=== PATIENT | male | born 1955 | race Caucasian/White ===

== ENCOUNTER 2018-10-09 14:22 | Inpatient (IN) | payer OTHER ==
[2018-10-09 15:27] VITALS: BMI 24.5
--- NOTE | 2018-10-09 17:04 | HP ---
CIWA Score Nausea/Vomitin Muscle Tremors: 6 Anxiety: 4-Mod. Anxious/Guarded Agitation: 1-Slight > Activity Paroxysmal Sweats: 2 Orientation: 0-Oriented Tacttile Disturbances: 2-Mild Itch/Numbness/Burn Auditory Disturbances: 0-None Visual Disturbances: 3-Moderate Sensitivity Headache: 2-Mild CIWA-Ar Total Score: 23 - Admission Criteria OASAS Guidelines: Admission for Medically Managed Detox: Requires at least one of the followin. CIWA greater than 12 2. Seizures within the past 24 hours 3. Delirium tremens within the past 24 hours 4. Hallucinations within the past 24 hours 5. Acute intervention needed for co occurring medical disorder 6. Acute intervention needed for co occurring psychiatric disorder 7. Severe withdrawal that cannot be handled at a lower level of care (continued vomiting, continued diarrhea, abnormal vital signs) requiring intravenous medication and/or fluids 8. Admission ROS S - [facility] Chief Complaint: " I need a drink , I don't ant to be here but I have to my worker said so " Allergies/Adverse Reactions: Allergies Allergy/AdvReac Type Severity Reaction Status Date / Time amlodipine Allergy Intermediate Swelling Verified 10/09/18 15:15 History of Present Illness: pt here requesting detox from etoh use , reports 1 large bottle liquor / day since January 2018 after the of his brother , first age of use 15 , intermittent use , reports currently has to drink in order to stop tremors " I have a bottle under my pillow " , denies seizures , +tremors , denies blackouts , latest use this morning before coming to this facility at the prompting of his senior case manager at the transitional housing residence where he lives . Pt reports falls while intoxicated , uses cane and a walker , reports LE neuropathy . Reports recent fall w/ injury to right arm , went to urgent care per pt no frx PMHX : htn , liver cirrhosis , renal failure several months ago 2/2 dehydration , pancreatitis latest 1 mo ago [place] , sent to rehab afterwards [facility] in [place] , d/c 2 mo ago , relapse after d/c , asthma PSHX : deviated septum PSych : depression , bipolar d/o tobacco : denies Exam Limitations: Clinical Condition, Intoxication - Ebola screening Have you traveled outside of the country in the last 21 days: No (N) Have you had contact with anyone from an Ebola affected area: No Do you have a fever: No - Review of Systems Constitutional: Loss of Appetite EENT: reports: Blurred Vision Respiratory: reports: Cough (reports gagging sensation w/ nausea) Cardiac: reports: No Symptoms Reported GI: reports: See HPI : reports: No Symptoms Reported Musculoskeletal: reports: See HPI Integumentary: reports: See HPI, Lumps (right forearm) Neuro: reports: Headache, Tremors Endocrine: reports: No Symptoms Reported Psychiatric: reports: Orientated x3, Agitated, Anxious Patient History - Smoking Cessation Smoking history: Never smoked - Substances abused Alcohol Substance route: Oral Frequency: Daily Amount used: vodka- half gallon Age of first use: 14 Date of last use: 10/09/18 Family Disease History - Family Disease History Family Disease History: CA: Father (d. lung ca 1970's), Brother (d. pancreatic CA , 2 w/ prostate CA ), Other: Father, Mother (d. 2008 Alzheimer's ), Brother , Son (1, A & W ) Other Family History: niece - d. 2018 @ age 50 w/ ovarian CA Admission Physical Exam S - Vital Signs Vital Signs: Vital Signs - 24 hr 10/09/18 15:11 Temperature 98.4 F Pulse Rate 95 H Respiratory 18 Rate Blood Pressure 138/89 - Physical General Appearance: Yes: Disheveled, Severe Distress, Alcohol on Breath, Intoxicated, Anxious HEENTM: Yes: EOMI, Normocephalic, Normal Voice, Hearing Decreased, Other (poor dentition , missing teeth) Respiratory: Yes: Lungs Clear, Normal Breath Sounds, No Respiratory Distress, No Accessory Muscle Use, Other (left side of chest wall tender, reports rib frx 2/2 fall 2 months ago) Neck: Yes: No masses,lesions,Nodules, Trachea in good position Cardiology: Yes: Regular Rhythm, Regular Rate, S1, S2, Tachycardia Abdominal: Yes: Non Tender, Soft Back: Yes: Normal Inspection Musculoskeletal: Yes: Joint Stiffness, Joint swelling (right forearm ulna extensor surface lower 1/3 w/ erythema, edema, induration and tenderness to palpation - states XR already done , no frx), Other (unsteady gait) Extremities: Yes: Non-Tender, Tremors Neurological: Yes: Fully Oriented, Alert, Motor Strength 5/5, Depressed Affect Integumentary: Yes: Warm, Erythema - Diagnostic (1) Alcohol intoxication Current Visit: Yes Status: Acute Qualifiers: Complication of substance-induced condition: uncomplicated Qualified Code(s ): F10.920 - Alcohol use, unspecified with intoxication, uncomplicated (2) Alcohol dependence Current Visit: Yes Status: Acute Qualifiers: Substance use status: in withdrawal Breathalyzer - Breathalyzer Breathalyzer: 0.150 Urine Drug Screen - Test Device Lot number: [id number] Expiration date: 01/11/20 - Control Is test valid?: Yes - Results Drug screen NEGATIVE: Yes Inpatient Rehab Admission - Rehab Decision to Admit Inpatient rehab admission?: No
[2018-10-09] MEDS ORDERED: MAG HYDROX/AL HYDROX/SIMETH 30 ML UNIT-DOSE CUP PO PRN (17:17)
[2018-10-09] MEDS ORDERED: MAGNESIUM CITRATE 300 ML BOTTLE PO PRN (17:17)
[2018-10-09] MEDS ORDERED: MENTHOL/PHENOL 1 EACH UD MM PRN (17:17)
[2018-10-09] MEDS ORDERED: BISMUTH SUBSALICYLATE 524 MG/30 ML UD PO PRN (17:17)
[2018-10-09] MEDS ORDERED: MAGNESIUM HYDROX 2400MG/30ML ORAL SUSPENSION 30 ML CUP PO PRN (17:17)
[2018-10-09] MEDS ORDERED: hydrOXYzine HCL 25 MG TABLET (FP) PO PRN (17:19)
[2018-10-09] MEDS ORDERED: chlordiazePOXIDE HCL 25 MG CAPSULE PO ONE (18:00)
[2018-10-09] MEDS: hydrOXYzine PAMOATE 25 MG CAPSULE (FP) PO PRN (20:59)
[2018-10-09] MEDS: MELATONIN 5 MG TABLETS PO PRN (21:00)
[2018-10-09] MEDS: THIAMINE HCL 100 MG TABLET (FP) PO SCH (21:02)
[2018-10-09] MEDS: chlordiazePOXIDE HCL 25 MG CAPSULE PO SCH (22:29)
[2018-10-10] MEDS: chlordiazePOXIDE HCL 25 MG CAPSULE PO PRN ×2 (00:45→14:34)
[2018-10-10] MEDS: ACETAMINOPHEN 325 MG TABLET (FP) PO PRN ×2 (02:17→16:46)
[2018-10-10] MEDS: hydrOXYzine PAMOATE 25 MG CAPSULE (FP) PO PRN (04:44)
[2018-10-10] MEDS: chlordiazePOXIDE HCL 25 MG CAPSULE PO SCH ×4 (04:45→22:00)
[2018-10-10] MEDS: DOCUSATE SODIUM 100 MG CAPSULE (FP) PO SCH (10:19)
[2018-10-10] MEDS: PANTOPRAZOLE 40 MG TABLET (FP) PO SCH (10:19)
[2018-10-10] MEDS: PRENATAL VITAMINS W/ FOLIC ACID TABLET (FP) PO SCH (10:19)
[2018-10-10] MEDS: FOLIC ACID 1 MG TABLET (FP) PO SCH (10:20)
[2018-10-10 12:17] LABS: ALBUMIN 3.7 g/dl (3.4-5.0); CALCIUM 9.3 mg/dL (8.5-10.1); CREATININE 0.7 mg/dL (0.55-1.3); POTASSIUM 3.9 mmol/L (3.5-5.1); TOT PROT 7.2 g/dl (6.4-8.2)
[2018-10-10 12:47] LABS: HEMATOCRIT 35.2 % (35.4-49); HEMOGLOBIN 11.5 GM/dL (11.7-16.9); MCH 26.5 pg (25.7-33.7); MCHC 32.8 g/dl (32.0-35.9); MEAN CELL VOLUME 80.9 fl (80-96); MEAN PLT VOLUME 8.9 fl (7.5-11.1); PLATELET COUNT 37 K/MM3 (134-434); RBC 4.35 M/mm3 (4.00-5.60); RDW 15.1 % (11.9-15.9); WHITE BLOOD COUNT 2.1 K/mm3 (4.0-10.0)
--- NOTE | 2018-10-10 13:17 | PN ---
S CIWA - CIWA Score Nausea/Vomitin Muscle Tremors: 2 Anxiety: 2 Agitation: 2 Paroxysmal Sweats: 1-Minimal Palms Moist Orientation: 0-Oriented Tacttile Disturbances: 1-Very Mild Itch/Numbness Auditory Disturbances: 1-Very Mild Visual Disturbances: 0-None Headache: 2-Mild CIWA-Ar Total Score: 13 [facility] Progress Note (SOAP) Subjective: alert,irritable,anxious,interrupted sleep,tremor Objective: 10/10/18 13:13 Vital Signs Temperature 98.3 F 10/10/18 13:01 Pulse Rate 107 H 10/10/18 13:01 Respiratory Rate 18 10/10/18 13:01 Blood Pressure 137/96 10/10/18 13:01 O2 Sat by Pulse Oximetry (%) Laboratory Last Values WBC 2.1 K/mm3 (4.0-10.0) L 10/10/18 08:45 RBC 4.35 M/mm3 (4.00-5.60) 10/10/18 08:45 Hgb 11.5 GM/dL (11.7-16.9) L 10/10/18 08:45 Hct 35.2 % (35.4-49) L 10/10/18 08:45 MCV 80.9 fl (80-96) 10/10/18 08:45 MCH 26.5 pg (25.7-33.7) 10/10/18 08:45 MCHC 32.8 g/dl (32.0-35.9) 10/10/18 08:45 RDW 15.1 % (11.9-15.9) 10/10/18 08:45 Sodium 137 mmol/L (136-145) 10/10/18 08:45 Potassium 3.9 mmol/L (3.5-5.1) 10/10/18 08:45 Chloride 98 mmol/L (98-107) 10/10/18 08:45 Carbon Dioxide 32 mmol/L (21-32) 10/10/18 08:45 Anion Gap 7 MMOL/L (8-16) L 10/10/18 08:45 BUN 9 mg/dL (7-18) 10/10/18 08:45 Creatinine 0.7 mg/dL (0.55-1.3) 10/10/18 08:45 Est GFR (CKD-EPI)AfAm 117.22 05/31/19 08:45 Est GFR (CKD-EPI)NonAf 101.14 10/10/18 08:45 Random Glucose 140 mg/dL (74-106) H 10/10/18 08:45 Calcium 9.3 mg/dL (8.5-10.1) 10/10/18 08:45 Total Bilirubin 1.0 mg/dL (0.2-1) 10/10/18 08:45 AST 58 U/L (15-37) H 10/10/18 08:45 ALT 34 U/L (13-61) 10/10/18 08:45 Alkaline Phosphatase 122 U/L (45-117) H 10/10/18 08:45 Total Protein 7.2 g/dl (6.4-8.2) 10/10/18 08:45 Albumin 3.7 g/dl (3.4-5.0) 10/10/18 08:45 10/10/18 13:15 other labs pending Assessment: 10/10/18 13:15 withdrawal symptom Plan: continue detox,wbc 2.1,will repeat cbc in am
[2018-10-10] MEDS: PATIENT'S OWN MEDICATION (NON-FORMULARY) (Lipase/Protease/Amylase [Creon Dr 24,000 Units C PO SCH ×3 (14:25→16:46)
[2018-10-10] MEDS: PATIENT'S OWN MEDICATION (NON-FORMULARY) (Gabapentin [Gabapentin] 600 MG) PO SCH ×3 (14:25→21:56)
[2018-10-10] MEDS: ONDANSETRON *ODT* 4 MG TABLET SL PRN (20:04)
[2018-10-10] MEDS: THIAMINE HCL 100 MG TABLET (FP) PO SCH (21:55)
[2018-10-11] MEDS: PATIENT'S OWN MEDICATION (NON-FORMULARY) (Gabapentin [Gabapentin] 600 MG) PO SCH ×3 (06:14→22:14)
[2018-10-11] MEDS: chlordiazePOXIDE HCL 25 MG CAPSULE PO SCH ×3 (06:14→18:33)
[2018-10-11] MEDS: PATIENT'S OWN MEDICATION (NON-FORMULARY) (Lipase/Protease/Amylase [Creon Dr 24,000 Units C PO SCH ×3 (08:14→18:34)
[2018-10-11] MEDS: PANTOPRAZOLE 40 MG TABLET (FP) PO SCH (10:40)
[2018-10-11] MEDS: DOCUSATE SODIUM 100 MG CAPSULE (FP) PO SCH (10:40)
[2018-10-11] MEDS: PRENATAL VITAMINS W/ FOLIC ACID TABLET (FP) PO SCH (10:40)
[2018-10-11] MEDS: FOLIC ACID 1 MG TABLET (FP) PO SCH (10:40)
[2018-10-11 11:17] LABS: HEMATOCRIT 35.7 % (35.4-49); HEMOGLOBIN 11.5 GM/dL (11.7-16.9); MCH 26.8 pg (25.7-33.7); MCHC 32.1 g/dl (32.0-35.9); MEAN CELL VOLUME 83.4 fl (80-96); MEAN PLT VOLUME 9.8 fl (7.5-11.1); RBC 4.29 M/mm3 (4.00-5.60); RDW 15.1 % (11.9-15.9); WHITE BLOOD COUNT 2.5 K/mm3 (4.0-10.0)
[2018-10-11 11:55] LABS: PLATELET COUNT 36 K/MM3 (134-434)
--- NOTE | 2018-10-11 13:11 | PN ---
[facility] CIWA - CIWA Score Nausea/Vomitin-No Nausea/No Vomiting Muscle Tremors: 6 Anxiety: 3 Agitation: 1-Slight > Activity Paroxysmal Sweats: 2 Orientation: 0-Oriented Tacttile Disturbances: 1-Very Mild Itch/Numbness Auditory Disturbances: 0-None Visual Disturbances: 2-Mild Sensitivity Headache: 0-None Present CIWA-Ar Total Score: 15 [facility]HS Progress Note (SOAP) Subjective: Tremors (Severe), Sweating, Anxious, Fatigue. Objective: PATIENT A & O X 3. IN NO ACUTE DISTRESS. 10/11/18 13:07 Vital Signs Temperature 97.8 F 10/11/18 09:06 Pulse Rate 118 H 10/11/18 09:06 Respiratory Rate 20 10/11/18 09:06 Blood Pressure 108/78 10/11/18 09:06 O2 Sat by Pulse Oximetry (%) Laboratory Tests 10/10/18 10/10/18 10/10/18 08:45 08:45 08:45 WBC 2.1 L RBC 4.35 Hgb 11.5 L Hct 35.2 L MCV 80.9 MCH 26.5 MCHC 32.8 RDW 15.1 Plt Count 37 L MPV 8.9 Sodium 137 Potassium 3.9 Chloride 98 Carbon Dioxide 32 Anion Gap 7 L BUN 9 Creatinine 0.7 Est GFR (CKD-EPI)AfAm 117.22 Est GFR (CKD-EPI)NonAf 101.14 Random Glucose 140 H Calcium 9.3 Total Bilirubin 1.0 AST 58 H ALT 34 Alkaline Phosphatase 122 H Total Protein 7.2 Albumin 3.7 RPR Titer Nonreactive 10/11/18 07:35 WBC 2.5 L RBC 4.29 Hgb 11.5 L Hct 35.7 MCV 83.4 MCH 26.8 MCHC 32.1 RDW 15.1 Plt Count 36 L* MPV 9.8 D Sodium Potassium Chloride Carbon Dioxide Anion Gap BUN Creatinine Est GFR (CKD-EPI)AfAm Est GFR (CKD-EPI)NonAf Random Glucose Calcium Total Bilirubin AST ALT Alkaline Phosphatase Total Protein Albumin RPR Titer LABS NOTED. RESULTS OF REPEAT CBC NOTED. PLATELET AND WBC LEVELS STILL NOTED TO BE LOW. 10/11/18 13:11 Assessment: 10/11/18 13:08 WITHDRAWAL SYMPTOMS. LEUKOPENIA. THROMBOCYTOPENIA (PATIENT REPORTS HISTORY OF CIRRHOSIS OF LIVER). 10/11/18 13:10 Plan: CONTINUE DETOX. PATIENT ADVISED TO FOLLOW-UP WITH [facility] OPERATOR AFTER DISCHARGE FROM DETOX FOR GENERAL MEDICAL ASSESSMENT AND FOR LOW PLATELET LEVEL NOTED ON DETOX ADMISSION AND REPEAT LABORATORY ASSESSMENTS. PATIENT VERBALIZED UNDERSTANDING OF RECOMMENDATION.
--- NOTE | 2018-10-11 13:24 | PN ---
[facility] Progress Note Note: PATIENT HAD UNWITNESSED FALL WHILE AMBULATING FROM GARBAGE PAIL IN BEDROOM BACK TO HIS BED. PATIENT THINKS THAT HE MIGHT HAVE TRIPPED ON LEG OF WALKER WHILE WALKING BACK TOWARD BED, BUT IS UNCERTAIN. PATIENT STATES THAT HE FELL PRIMARILY ON HIS LEFT SIDE AND THAT HE IS CURRENTLY FEELING PAIN IN HIS LEFT SHOULDER AND LEFT HIP. PATIENT IS UNCERTAIN IF HE HIT HIS HEAD DURING FALL. PATIENT DENIES PAIN IN HEAD. PATIENT A & O X 3. PERRLA. NO ERYTHEMA, WOUNDS, DISCHARGE, SWELLING, OR SIGN OF EXTERNAL INJURY NOTED ON PATIENT'S HEAD, LEFT SHOULDER, OR LEFT HIP. NO TENDERNESS NOTED BY PATIENT UPON PALPATION OF AFOREMENTIONED AREAS. PATIENT DENIES NAUSEA/VOMITING AND DIZZINESS. VS: BP: 141/91; p: 64; T: 98.7; RR: 18. [facility] FALL PROTOCOL # 1 IMPLEMENTED (INCLUDING HEAD CT AND PT/INR). REPORT GIVEN TO DR. PARK AT [facility]. PATIENT TO BE TAKEN VIA AMBULANCE TO [facility] FOR FURTHER MEDICAL EVALUATION. Brian AGUILERA NP
--- NOTE | 2018-10-11 13:28 | PN ---
[facility] Progress Note Note: Magnesium-Containing Meds. D/C'd due to Patient's Reported History of Renal Disease. Brian Gallo NP
[2018-10-11] MEDS: ONDANSETRON *ODT* 4 MG TABLET SL PRN (19:57)
[2018-10-11] MEDS: THIAMINE HCL 100 MG TABLET (FP) PO SCH (22:13)
[2018-10-11] MEDS: chlordiazePOXIDE HCL 10 MG CAPSULE PO SCH (22:14)
[2018-10-11] MEDS: MELATONIN 5 MG TABLETS PO PRN (22:14)
[2018-10-11] MEDS ORDERED: chlordiazePOXIDE HCL 10 MG CAPSULE PO PRN (23:00)
[2018-10-12] MEDS: chlordiazePOXIDE HCL 10 MG CAPSULE PO SCH ×4 (06:03→22:02)
[2018-10-12] MEDS: PATIENT'S OWN MEDICATION (NON-FORMULARY) (Gabapentin [Gabapentin] 600 MG) PO SCH ×3 (06:03→22:03)
[2018-10-12] MEDS: ACETAMINOPHEN 325 MG TABLET (FP) PO PRN ×2 (06:05→15:01)
[2018-10-12] MEDS: PATIENT'S OWN MEDICATION (NON-FORMULARY) (Lipase/Protease/Amylase [Creon Dr 24,000 Units C PO SCH ×3 (07:56→17:13)
[2018-10-12] MEDS: PRENATAL VITAMINS W/ FOLIC ACID TABLET (FP) PO SCH (10:58)
[2018-10-12] MEDS: PANTOPRAZOLE 40 MG TABLET (FP) PO SCH (10:58)
[2018-10-12] MEDS: FOLIC ACID 1 MG TABLET (FP) PO SCH (10:58)
[2018-10-12] MEDS: DOCUSATE SODIUM 100 MG CAPSULE (FP) PO SCH (11:02)
--- NOTE | 2018-10-12 11:40 | PN ---
S CIWA - CIWA Score Nausea/Vomitin-No Nausea/No Vomiting Muscle Tremors: 3 Anxiety: 2 Agitation: 0-Normal Activity Paroxysmal Sweats: 3 Orientation: 0-Oriented Tacttile Disturbances: 0-None Auditory Disturbances: 0-None Visual Disturbances: 0-None Headache: 0-None Present CIWA-Ar Total Score: 8 S Progress Note (SOAP) Subjective: L shoulder/low back pain Tired Objective: 10/12/18 11:38 Alert, oriented to name and place Very sleepy during visit Noted with cane and walker by bedside breathing unlabored Vital Signs Temperature 98.4 F 10/12/18 09:42 Pulse Rate 94 H 10/12/18 09:42 Respiratory Rate 16 10/12/18 09:42 Blood Pressure 107/70 10/12/18 09:42 O2 Sat by Pulse Oximetry (%) Assessment: 10/12/18 11:39 withdrawal sx Plan: continue detox continue pain meds Fall protocol in place lidocaine patch for back pain ordered
[2018-10-12] MEDS: LIDOCAINE 5% TOPICAL PATCH TP SCH (12:49)
[2018-10-12] MEDS ORDERED: LIDOCAINE PATCH REMOVAL MC SCH (22:00)
[2018-10-12] MEDS: THIAMINE HCL 100 MG TABLET (FP) PO SCH (22:02)
[2018-10-12] MEDS: MELATONIN 5 MG TABLETS PO PRN (22:03)
[2018-10-13] MEDS: PATIENT'S OWN MEDICATION (NON-FORMULARY) (Lipase/Protease/Amylase [Creon Dr 24,000 Units C PO SCH ×3 (07:19→17:28)
[2018-10-13] MEDS: PATIENT'S OWN MEDICATION (NON-FORMULARY) (Gabapentin [Gabapentin] 600 MG) PO SCH ×2 (07:20→15:12)
[2018-10-13] MEDS: ACETAMINOPHEN 325 MG TABLET (FP) PO PRN (09:28)
[2018-10-13] MEDS: DOCUSATE SODIUM 100 MG CAPSULE (FP) PO SCH (10:19)
[2018-10-13] MEDS: FOLIC ACID 1 MG TABLET (FP) PO SCH (10:20)
[2018-10-13] MEDS: PRENATAL VITAMINS W/ FOLIC ACID TABLET (FP) PO SCH (10:21)
[2018-10-13] MEDS: PANTOPRAZOLE 40 MG TABLET (FP) PO SCH (10:21)
[2018-10-13] MEDS: chlordiazePOXIDE HCL 10 MG CAPSULE PO SCH (10:24)
[2018-10-13] MEDS: LIDOCAINE 5% TOPICAL PATCH TP SCH (11:19)
[2018-10-13] MEDS: hydrOXYzine PAMOATE 25 MG CAPSULE (FP) PO PRN (14:33)
--- NOTE | 2018-10-13 16:08 | DS ---
[facility] Detox Discharge Summary Admission Date: 10/09/18 Discharge Date: 10/13/18 - History Present History: Alcohol Dependence Additional Comments: 63 years old male admitted on 10/09/18 for alcohol withdrawal stabilization completed detox regime after[facility] patient lives at residential facility cared by nurse multiple fall due to neuropathy of the legs ambulating with cane / walker / wheelchair patient was at physical therapy facility x 1 month (July 2018) discharged back to residential facility alcohol relapse admitted to detox onn10/09/18 fell on 10/11/18 medically cleared by ER return to detox unit alert no acute distress speech clearly coherent case discuss with counselor that after[facility] - Physical Exam Results Vital Signs: Vital Signs Temperature 96.4 F L 10/13/18 13:35 Pulse Rate 75 10/13/18 13:35 Respiratory Rate 18 10/13/18 13:35 Blood Pressure 124/82 10/13/18 13:35 O2 Sat by Pulse Oximetry (%) Pertinent Admission Physical Exam Findings: alcohol withdrawal sx Laboratory Last Values WBC 2.5 K/mm3 (4.0-10.0) L 10/11/18 07:35 RBC 4.29 M/mm3 (4.00-5.60) 10/11/18 07:35 Hgb 11.5 GM/dL (11.7-16.9) L 10/11/18 07:35 Hct 35.7 % (35.4-49) 10/11/18 07:35 MCV 83.4 fl (80-96) 10/11/18 07:35 MCH 26.8 pg (25.7-33.7) 10/11/18 07:35 MCHC 32.1 g/dl (32.0-35.9) 10/11/18 07:35 RDW 15.1 % (11.9-15.9) 10/11/18 07:35 Plt Count 36 K/MM3 (134-434) L* 10/11/18 07:35 MPV 9.8 fl (7.5-11.1) D 10/11/18 07:35 Sodium 137 mmol/L (136-145) 10/10/18 08:45 Potassium 3.9 mmol/L (3.5-5.1) 10/10/18 08:45 Chloride 98 mmol/L (98-107) 10/10/18 08:45 Carbon Dioxide 32 mmol/L (21-32) 10/10/18 08:45 Anion Gap 7 MMOL/L (8-16) L 10/10/18 08:45 BUN 9 mg/dL (7-18) 10/10/18 08:45 Creatinine 0.7 mg/dL (0.55-1.3) 10/10/18 08:45 Est GFR (CKD-EPI)AfAm 117.22 10/10/18 08:45 Est GFR (CKD-EPI)NonAf 101.14 10/10/18 08:45 Random Glucose 140 mg/dL (74-106) H 10/10/18 08:45 Calcium 9.3 mg/dL (8.5-10.1) 10/10/18 08:45 Total Bilirubin 1.0 mg/dL (0.2-1) 10/10/18 08:45 AST 58 U/L (15-37) H 10/10/18 08:45 ALT 34 U/L (13-61) 10/10/18 08:45 Alkaline Phosphatase 122 U/L (45-117) H 10/10/18 08:45 Total Protein 7.2 g/dl (6.4-8.2) 10/10/18 08:45 Albumin 3.7 g/dl (3.4-5.0) 10/10/18 08:45 RPR Titer Nonreactive (NONREACTIVE) 10/10/18 08:45 lab noted - Treatment Hospital Course: Detox Protocol Followed, Detoxed Safely, Responded well, Discharged Condition Good, Rehab Referral Accepted Patient has Accepted a Rehab Referral to: [facility] - Medication Discharge Medications: Ambulatory Orders Calcium Carbonate/Vitamin D3 [Calcium 500 + Vit D Caplet] 1 each PO DAILY Docusate Sodium [Colace -] 100 mg PO DAILY 10/09/18 Folic Acid - 1 mg PO DAILY 10/09/18 Gabapentin 600 mg PO TID 10/09/18 Lipase/Protease/Amylase [Michelle Dr 24,000 Units Capsule] 1 each PO TID 10/09/18 Omeprazole 40 mg PO DAILY 10/09/18 Thiamine HCl [B-1] 100 mg PO DAILY 10/09/18 LORazepam [Ativan] 0.5 mg PO TID 10/11/18 - Diagnosis (1) Alcohol dependence Current Visit: Yes Status: Acute Qualifiers: Substance use status: in withdrawal (2) Leukopenia Current Visit: Yes Status: Chronic Qualifiers: Leukopenia type: other Qualified Code(s): D72.818 - Other decreased white blood cell count - AMA Did Patient Leave Against Medical Advice: No
[2018-10-13 17:20] VITALS: BP 121/82; PULSE 101; TEMP 97.4
[2018-10-13] MEDS: ONDANSETRON *ODT* 4 MG TABLET SL PRN (18:22)
== END 2018-10-13 06:26 | disposition home or self-care (01) | DRG 775 ==
LOC: YASAS 14:22 → Y3N 17:22
PROVIDERS: ADMIT Surgery; ATTEND Surgery
PROC: HZ2ZZZZ Detoxification Services for Substance Abuse Treatment (ICD-10-PCS; principal; 2018-10-09)
DX: F10.230 Alcohol dependence with withdrawal, uncomplicated (principal); F10.929 Alcohol use, unspecified with intoxication, unspecified; D69.6 Thrombocytopenia, unspecified; D72.818 Other decreased white blood cell count; G62.9 Polyneuropathy, unspecified; R26.89 Other abnormalities of gait and mobility; Z99.89 Dependence on other enabling machines and devices; M25.552 Pain in left hip; M25.512 Pain in left shoulder; W18.39XA Other fall on same level, initial encounter; Y93.89 Activity, other specified; Y92.230 Patient room in hospital as the place of occurrence of the external cause; Y99.8 Other external cause status
CPT/HCPCS: 36415; 71046-TC-FY; 80053; 85027; 86593; Q0162

== ENCOUNTER 2018-10-11 14:18 | Emergency (ER) | payer OTHER | END 2018-10-11 18:41 | disposition home or self-care (01) | LOC: JER 14:18 ==

== ENCOUNTER 2018-10-13 18:59 | Inpatient (IN) | payer OTHER ==
--- NOTE | 2018-10-13 16:13 | HP ---
[facility] Rehab Assess/Revision - Admission History Admitted to Rehab from: [facility] Date of Admission to Rehab: 10/13/18 - Findings Detox History & Physical reviewed: Yes Concur with findings: Yes Comments/Additional Findings: transferred from detox to rehab admission as per protocol Inpatient Rehab Admission - Rehab Decision to Admit Inpatient rehab admission?: Yes - Initial Determination Are CD services needed?: Yes Free of communicable disease: Yes Not in need of hospitalization: Yes - Rehab Admission Criteria Previous failed treatment: Yes Poor recovery environment: Yes Comorbidities: Yes Lacks judgement: No Patient is meeting Inpatient Rehab admission criteria:: Yes
[~2018-10-13 18:59] MED LIST: LOPERAMIDE HCL 2 MG CAPSULE PO PRN; MAG HYDROX/AL HYDROX/SIMETH 30 ML UNIT-DOSE CUP PO PRN; MAGNESIUM CITRATE 300 ML BOTTLE PO PRN; MENTHOL/PHENOL 1 EACH UD MM PRN; P-EPHED 60MG/TRIPROLIDI 2.5MG TABLET PO PRN; guaiFENesin 200 MG/10 ML 10 ML UNIT-DOSE CUPS PO PRN
[2018-10-13] MEDS: ACETAMINOPHEN 325 MG TABLET (FP) PO PRN (19:43)
[2018-10-13] MEDS: THIAMINE HCL 100 MG TABLET (FP) PO SCH (21:10)
[2018-10-13] MEDS: GABAPENTIN 300 MG CAPSULE (FP) PO SCH (22:00)
[2018-10-13] MEDS: LIDOCAINE PATCH REMOVAL MC SCH (22:00)
[2018-10-13] MEDS: LIPASE/PROTEASE/AMYLASE 6,000 UNIT CAPSULE PO SCH (22:12)
[2018-10-14] MEDS: GABAPENTIN 300 MG CAPSULE (FP) PO SCH (06:09)
[2018-10-14] MEDS: LIPASE/PROTEASE/AMYLASE 6,000 UNIT CAPSULE PO SCH ×2 (07:51→12:24)
[2018-10-14] MEDS ORDERED: CALCIUM 500MG/VIT-D 200 UNITS COMBO TABLET (FP) PO SCH (10:00)
[2018-10-14] MEDS: PANTOPRAZOLE 40 MG TABLET (FP) PO SCH (10:28)
[2018-10-14] MEDS: PRENATAL VITAMINS W/ FOLIC ACID TABLET (FP) PO SCH (10:29)
[2018-10-14] MEDS: DOCUSATE SODIUM 100 MG CAPSULE (FP) PO SCH (10:50)
[2018-10-14] MEDS: LIDOCAINE 5% TOPICAL PATCH TP SCH (10:51)
[2018-10-14] MEDS: ACETAMINOPHEN 325 MG TABLET (FP) PO PRN (11:44)
[2018-10-14] MEDS ORDERED: GABAPENTIN 300 MG CAPSULE (FP) PO SCH (12:32)
[2018-10-14] MEDS ORDERED: TETRAHYDROZOLINE HCL EYE DROPS OS PRN (13:01)
[2018-10-14] MEDS: NON-FORMULARY MED PO SCH ×2 (16:01→21:12)
[2018-10-14] MEDS: [UNRECOGNIZED DRUG - OTHER] PO SCH (16:45)
[2018-10-14] MEDS: PANCRELIPASE PO SCH (16:45)
[2018-10-14] MEDS: LIDOCAINE PATCH REMOVAL MC SCH (21:10)
[2018-10-14] MEDS: THIAMINE HCL 100 MG TABLET (FP) PO SCH (21:12)
[2018-10-15] MEDS: NON-FORMULARY MED PO SCH ×3 (06:09→21:26)
[2018-10-15] MEDS: PANCRELIPASE PO SCH ×3 (08:27→16:42)
[2018-10-15] MEDS: [UNRECOGNIZED DRUG - OTHER] PO SCH ×3 (08:27→16:42)
[2018-10-15] MEDS: PANTOPRAZOLE 40 MG TABLET (FP) PO SCH (09:49)
[2018-10-15] MEDS: PRENATAL VITAMINS W/ FOLIC ACID TABLET (FP) PO SCH (09:49)
[2018-10-15] MEDS: DOCUSATE SODIUM 100 MG CAPSULE (FP) PO SCH (09:49)
[2018-10-15] MEDS: VITAMIN D PO SCH (09:49)
[2018-10-15] MEDS: CALCIUM PO SCH (09:49)
[2018-10-15] MEDS: LIDOCAINE 5% TOPICAL PATCH TP SCH (09:50)
--- NOTE | 2018-10-15 10:34 | PN ---
S Progress Note Note: Vital Signs Temperature 97.7 F 10/15/18 06:28 Pulse Rate 95 H 10/15/18 06:28 Respiratory Rate 16 10/15/18 06:28 Blood Pressure 151/94 10/15/18 06:28 O2 Sat by Pulse Oximetry (%) Patient reports taken lisinopril 20 mg qd or HTN home med list reviewed Lisinopril 20 mg qd ordered start today increase po fluids low sodium diet continue to monitor
[2018-10-15] MEDS: ACETAMINOPHEN 325 MG TABLET (FP) PO PRN (10:49)
[2018-10-15] MEDS: LISINOPRIL 20 MG TABLET (FP) PO SCH (10:49)
[2018-10-15] MEDS: TETRAHYDROZOLINE HCL EYE DROPS OU PRN (21:26)
[2018-10-15] MEDS: THIAMINE HCL 100 MG TABLET (FP) PO SCH (21:26)
[2018-10-15] MEDS: LIDOCAINE PATCH REMOVAL MC SCH (21:28)
[2018-10-15] MEDS: MELATONIN 5 MG TABLETS PO PRN (21:28)
[2018-10-16] MEDS: NON-FORMULARY MED PO SCH (06:24)
[2018-10-16] MEDS: PANCRELIPASE PO SCH (07:31)
[2018-10-16] MEDS: [UNRECOGNIZED DRUG - OTHER] PO SCH (07:31)
[2018-10-16] MEDS: LISINOPRIL 20 MG TABLET (FP) PO SCH (09:51)
[2018-10-16] MEDS: DOCUSATE SODIUM 100 MG CAPSULE (FP) PO SCH ×2 (09:51→10:07)
[2018-10-16] MEDS: PRENATAL VITAMINS W/ FOLIC ACID TABLET (FP) PO SCH (09:52)
[2018-10-16] MEDS: PANTOPRAZOLE 40 MG TABLET (FP) PO SCH (09:52)
[2018-10-16] MEDS: VITAMIN D PO SCH (09:52)
[2018-10-16] MEDS: CALCIUM PO SCH (09:52)
[2018-10-16] MEDS: LIDOCAINE 5% TOPICAL PATCH TP SCH (09:52)
[2018-10-16] MEDS: TETRAHYDROZOLINE HCL EYE DROPS OU PRN ×2 (09:59→22:50)
--- NOTE | 2018-10-16 11:07 | PN ---
[facility] Progress Note Note: PT C/O RIGHT ELBOW WITH PAIN 7/10, REDNESS AND SWELLING X 1 MONTH. REPORTS HE SAW HIS DOCTOR AT THE TIME AND STATES HE SAID "I BROKE A VESSEL". PT C/O DIFFICULTY SWALLOWING BIG PILLS AND MEAT. REPORTS HAS SAME PROBLEMS AT HOME AND LIVES IN A [facility] IN [place] WHERE THEY TAKE CARE OF HIS MEDICAL AND FEEDING NEEDS. PT REPORTS REPORTS SOME TYPE OF DIFFICULTY SWALOWING SOLID FOODS AND LARGE PILLS-MEDICATIONS. PTWAS PUT ON THE PHONE WITH THE PHARMACIST TODAY TO DISCUSS THE SUBSTITUTED FORMS OF MEDICATIONS TO HELP WITH SWALLOWING. PT WAS OFFERED LIQUID MEDICATION AND SMALLER PILLS REPLACEMENTS WHICH HE AGREED. DISCUSSED WITH THE DIETITIAN ABOUT PROVIDING CHOPPED MEAT AND SOFT FOODS WHERE NECESSARY. Vital Signs - 24 hr 10/15/18 10/16/18 10/16/18 14:45 00:30 03:30 Pulse Rate 105 H Respiratory 18 18 Rate Blood Pressure 109/70 10/16/18 06:55 Pulse Rate 88 Respiratory 18 Rate Blood Pressure 128/67 RIGHT ELBOW:AREA WITH SLIGHT REDNESS ON RIGHT ELBOW WHICH BLANCHES ON PALPATION ; SLIGHT PAIN ON PALPATION. A:CELLULITIS PLAN:BACITRACIN OINTMENT WARM COMPRESS APPLY BID DIETARY CONSULT RE: APPROPRIATE FOOD AVAILABLE FOR PT'S SWALLOWING NEEDS. CHOPPED MEAT D/W FRANK MOHR, PHARMACIST RE: LIQUID MEDICATIONS WHERE NECESSARY.
[2018-10-16] MEDS: LIPASE/PROTEASE/AMYLASE 6,000 UNIT CAPSULE PO SCH ×2 (12:46→17:01)
[2018-10-16] MEDS: GABAPENTIN 250 MG/5 ML ORAL SOLUTION, 470 ML BOTTLE PO SCH ×2 (13:58→21:06)
[2018-10-16] MEDS: BACITRACIN 0.9 GM PACKET TP SCH (21:08)
[2018-10-16] MEDS: LIDOCAINE PATCH REMOVAL MC SCH (21:08)
[2018-10-16] MEDS: THIAMINE HCL 100 MG TABLET (FP) PO SCH (21:09)
[2018-10-16] MEDS: MELATONIN 5 MG TABLETS PO PRN (21:10)
[2018-10-17] MEDS: GABAPENTIN 250 MG/5 ML ORAL SOLUTION, 470 ML BOTTLE PO SCH ×3 (06:13→21:14)
[2018-10-17] MEDS: LIPASE/PROTEASE/AMYLASE 6,000 UNIT CAPSULE PO SCH ×3 (07:33→17:13)
[2018-10-17] MEDS: PANTOPRAZOLE 40 MG TABLET (FP) PO SCH (10:02)
[2018-10-17] MEDS: LISINOPRIL 20 MG TABLET (FP) PO SCH (10:02)
[2018-10-17] MEDS: DOCUSATE SODIUM 100 MG CAPSULE (FP) PO SCH (10:02)
[2018-10-17] MEDS: BACITRACIN 0.9 GM PACKET TP SCH ×2 (10:02→21:13)
[2018-10-17] MEDS: MULTIVIT-MINERALS ORAL LIQUID PO SCH (10:04)
[2018-10-17] MEDS: FOLIC ACID 1 MG TABLET (FP) PO SCH (10:04)
[2018-10-17] MEDS: LIDOCAINE 5% TOPICAL PATCH TP SCH (10:04)
[2018-10-17] MEDS: VITAMIN D PO SCH (10:05)
[2018-10-17] MEDS: CALCIUM PO SCH (10:05)
[2018-10-17] MEDS: LIDOCAINE PATCH REMOVAL MC SCH (21:13)
[2018-10-17] MEDS: THIAMINE HCL 100 MG TABLET (FP) PO SCH (21:15)
[2018-10-17] MEDS: TETRAHYDROZOLINE HCL EYE DROPS OU PRN (21:15)
[2018-10-18] MEDS: GABAPENTIN 250 MG/5 ML ORAL SOLUTION, 470 ML BOTTLE PO SCH ×3 (07:00→21:14)
[2018-10-18] MEDS: LIPASE/PROTEASE/AMYLASE 6,000 UNIT CAPSULE PO SCH ×3 (08:03→16:52)
[2018-10-18] MEDS: BACITRACIN 0.9 GM PACKET TP SCH ×2 (09:44→21:14)
[2018-10-18] MEDS: DOCUSATE SODIUM 100 MG CAPSULE (FP) PO SCH (09:44)
[2018-10-18] MEDS: PANTOPRAZOLE 40 MG TABLET (FP) PO SCH (09:44)
[2018-10-18] MEDS: LISINOPRIL 20 MG TABLET (FP) PO SCH (09:44)
[2018-10-18] MEDS: LIDOCAINE 5% TOPICAL PATCH TP SCH (09:45)
[2018-10-18] MEDS: MULTIVIT-MINERALS ORAL LIQUID PO SCH (09:46)
[2018-10-18] MEDS: CALCIUM PO SCH (09:46)
[2018-10-18] MEDS: VITAMIN D PO SCH (09:46)
[2018-10-18] MEDS: FOLIC ACID 1 MG TABLET (FP) PO SCH (09:47)
[2018-10-18] MEDS: TETRAHYDROZOLINE HCL EYE DROPS OU PRN ×2 (12:07→21:20)
--- NOTE | 2018-10-18 18:28 | PN ---
[facility] Progress Note Note: call to evaluate patient stated that he fell last night,last balance,trying to go to bathroom unwithness fall no head injury examintation alert,oriented x3 pupil equal and react to light no neck pain ecchymosis over left upper arm movement all extremity no limitaion no abdominal pain history of cirrhosis of liver,pancreatitis impression unwitness fall treatment initiate fall protocol1 er evaluation ambulate with walker cirrhosis of liver history of pancreatitis patient refused to go to er for evaluation and treatment,refused and signed refusal form close monitoring
--- NOTE | 2018-10-18 18:33 | PN ---
S Progress Note Note: Vital Signs Temperature 97.4 F L 10/18/18 18:06 Pulse Rate 96 H 10/18/18 18:06 Respiratory Rate 20 10/18/18 11:07 Blood Pressure 132/68 10/18/18 18:06 O2 Sat by Pulse Oximetry (%) repeat vital sign t97.4,p86,r18,t98.4
[2018-10-18] MEDS: THIAMINE HCL 100 MG TABLET (FP) PO SCH (21:14)
[2018-10-18] MEDS: LIDOCAINE PATCH REMOVAL MC SCH (21:15)
[2018-10-18] MEDS: MELATONIN 5 MG TABLETS PO PRN (21:16)
[2018-10-19] MEDS: GABAPENTIN 250 MG/5 ML ORAL SOLUTION, 470 ML BOTTLE PO SCH ×4 (07:04→21:08)
[2018-10-19] MEDS: LIPASE/PROTEASE/AMYLASE 6,000 UNIT CAPSULE PO SCH ×3 (07:58→18:48)
[2018-10-19] MEDS: MULTIVIT-MINERALS ORAL LIQUID PO SCH (09:30)
[2018-10-19] MEDS: BACITRACIN 0.9 GM PACKET TP SCH ×2 (09:30→21:08)
[2018-10-19] MEDS: FOLIC ACID 1 MG TABLET (FP) PO SCH (09:30)
[2018-10-19] MEDS: DOCUSATE SODIUM 100 MG CAPSULE (FP) PO SCH (09:30)
[2018-10-19] MEDS: PANTOPRAZOLE 40 MG TABLET (FP) PO SCH (09:30)
[2018-10-19] MEDS: LISINOPRIL 20 MG TABLET (FP) PO SCH (09:30)
[2018-10-19] MEDS: LIDOCAINE 5% TOPICAL PATCH TP SCH (09:30)
[2018-10-19] MEDS: VITAMIN D PO SCH (09:31)
[2018-10-19] MEDS: CALCIUM PO SCH (09:31)
[2018-10-19] MEDS: ACETAMINOPHEN 325 MG TABLET (FP) PO PRN (09:32)
[2018-10-19] MEDS: TETRAHYDROZOLINE HCL EYE DROPS OU PRN ×2 (10:24→21:08)
[2018-10-19] MEDS: THIAMINE HCL 100 MG TABLET (FP) PO SCH (21:08)
[2018-10-19] MEDS: LIDOCAINE PATCH REMOVAL MC SCH (21:09)
[2018-10-19] MEDS: MELATONIN 5 MG TABLETS PO PRN (21:09)
[2018-10-20] MEDS: GABAPENTIN 250 MG/5 ML ORAL SOLUTION, 470 ML BOTTLE PO SCH ×3 (06:20→21:08)
[2018-10-20] MEDS: LIPASE/PROTEASE/AMYLASE 6,000 UNIT CAPSULE PO SCH ×3 (08:01→17:04)
[2018-10-20] MEDS: LISINOPRIL 20 MG TABLET (FP) PO SCH (09:52)
[2018-10-20] MEDS: FOLIC ACID 1 MG TABLET (FP) PO SCH (09:53)
[2018-10-20] MEDS: BACITRACIN 0.9 GM PACKET TP SCH ×2 (09:53→21:08)
[2018-10-20] MEDS: LIDOCAINE 5% TOPICAL PATCH TP SCH (09:54)
[2018-10-20] MEDS: MULTIVIT-MINERALS ORAL LIQUID PO SCH (09:54)
[2018-10-20] MEDS: DOCUSATE SODIUM 100 MG CAPSULE (FP) PO SCH (09:54)
[2018-10-20] MEDS: CALCIUM PO SCH (09:55)
[2018-10-20] MEDS: VITAMIN D PO SCH (09:55)
[2018-10-20] MEDS: PANTOPRAZOLE 40 MG TABLET (FP) PO SCH (09:55)
[2018-10-20] MEDS ORDERED: ALBUTEROL SO4 8 GM HFA INHALER IH PRN (10:41)
[2018-10-20] MEDS: TETRAHYDROZOLINE HCL EYE DROPS OU PRN (17:06)
[2018-10-20] MEDS: THIAMINE HCL 100 MG TABLET (FP) PO SCH (21:08)
[2018-10-20] MEDS: MELATONIN 5 MG TABLETS PO PRN (21:09)
[2018-10-20] MEDS: LIDOCAINE PATCH REMOVAL MC SCH (21:09)
[2018-10-21] MEDS: GABAPENTIN 250 MG/5 ML ORAL SOLUTION, 470 ML BOTTLE PO SCH ×3 (06:43→21:05)
[2018-10-21] MEDS: LIPASE/PROTEASE/AMYLASE 6,000 UNIT CAPSULE PO SCH ×3 (07:36→16:57)
[2018-10-21] MEDS: DOCUSATE SODIUM 100 MG CAPSULE (FP) PO SCH ×2 (09:57→21:07)
[2018-10-21] MEDS: VITAMIN D PO SCH (09:57)
[2018-10-21] MEDS: LIDOCAINE 5% TOPICAL PATCH TP SCH (09:57)
[2018-10-21] MEDS: CALCIUM PO SCH (09:57)
[2018-10-21] MEDS: MULTIVIT-MINERALS ORAL LIQUID PO SCH (09:57)
[2018-10-21] MEDS: PANTOPRAZOLE 40 MG TABLET (FP) PO SCH (09:58)
[2018-10-21] MEDS: LISINOPRIL 20 MG TABLET (FP) PO SCH (09:58)
[2018-10-21] MEDS: FOLIC ACID 1 MG TABLET (FP) PO SCH (09:59)
[2018-10-21] MEDS: BACITRACIN 0.9 GM PACKET TP SCH ×2 (10:01→21:07)
[2018-10-21] MEDS: MELATONIN 5 MG TABLETS PO PRN (21:06)
[2018-10-21] MEDS: THIAMINE HCL 100 MG TABLET (FP) PO SCH (21:06)
[2018-10-21] MEDS: LIDOCAINE PATCH REMOVAL MC SCH (21:07)
[2018-10-22] MEDS: GABAPENTIN 250 MG/5 ML ORAL SOLUTION, 470 ML BOTTLE PO SCH ×3 (06:25→21:07)
[2018-10-22] MEDS: LIPASE/PROTEASE/AMYLASE 6,000 UNIT CAPSULE PO SCH ×3 (07:32→16:46)
[2018-10-22] MEDS: BACITRACIN 0.9 GM PACKET TP SCH ×2 (09:38→21:08)
[2018-10-22] MEDS: FOLIC ACID 1 MG TABLET (FP) PO SCH (09:38)
[2018-10-22] MEDS: LISINOPRIL 20 MG TABLET (FP) PO SCH (09:38)
[2018-10-22] MEDS: PANTOPRAZOLE 40 MG TABLET (FP) PO SCH (09:38)
[2018-10-22] MEDS: MULTIVIT-MINERALS ORAL LIQUID PO SCH (09:38)
[2018-10-22] MEDS: LIDOCAINE 5% TOPICAL PATCH TP SCH (09:39)
[2018-10-22] MEDS: VITAMIN D PO SCH (09:39)
[2018-10-22] MEDS: CALCIUM PO SCH (09:39)
[2018-10-22] MEDS: TETRAHYDROZOLINE HCL EYE DROPS OU PRN (14:10)
[2018-10-22] MEDS: THIAMINE HCL 100 MG TABLET (FP) PO SCH (21:07)
[2018-10-22] MEDS: DOCUSATE SODIUM 100 MG CAPSULE (FP) PO SCH (21:07)
[2018-10-22] MEDS: LIDOCAINE PATCH REMOVAL MC SCH (21:09)
[2018-10-22] MEDS: MELATONIN 5 MG TABLETS PO PRN (21:09)
[2018-10-23] MEDS: GABAPENTIN 250 MG/5 ML ORAL SOLUTION, 470 ML BOTTLE PO SCH ×3 (07:07→21:13)
[2018-10-23] MEDS: LIPASE/PROTEASE/AMYLASE 6,000 UNIT CAPSULE PO SCH ×3 (07:09→16:52)
[2018-10-23] MEDS: FOLIC ACID 1 MG TABLET (FP) PO SCH (09:56)
[2018-10-23] MEDS: LISINOPRIL 20 MG TABLET (FP) PO SCH (09:56)
[2018-10-23] MEDS: MULTIVIT-MINERALS ORAL LIQUID PO SCH (09:56)
[2018-10-23] MEDS: PANTOPRAZOLE 40 MG TABLET (FP) PO SCH (09:56)
[2018-10-23] MEDS: VITAMIN D PO SCH (09:57)
[2018-10-23] MEDS: BACITRACIN 0.9 GM PACKET TP SCH ×2 (09:57→21:11)
[2018-10-23] MEDS: CALCIUM PO SCH (09:57)
[2018-10-23] MEDS: HYDROCORTISONE 1% TOPICAL CREAM 30 GM TUBE TP SCH ×2 (09:59→21:12)
[2018-10-23] MEDS: LIDOCAINE 5% TOPICAL PATCH TP SCH (10:01)
[2018-10-23] MEDS: THIAMINE HCL 100 MG TABLET (FP) PO SCH (21:11)
[2018-10-23] MEDS: LIDOCAINE PATCH REMOVAL MC SCH (21:12)
[2018-10-23] MEDS: MELATONIN 5 MG TABLETS PO PRN (21:12)
[2018-10-23] MEDS: DOCUSATE SODIUM 100 MG CAPSULE (FP) PO SCH (21:12)
[2018-10-23] MEDS: TETRAHYDROZOLINE HCL EYE DROPS OU PRN (21:14)
[2018-10-24] MEDS: GABAPENTIN 250 MG/5 ML ORAL SOLUTION, 470 ML BOTTLE PO SCH ×3 (06:16→21:11)
[2018-10-24] MEDS: LIPASE/PROTEASE/AMYLASE 6,000 UNIT CAPSULE PO SCH ×3 (07:34→16:43)
[2018-10-24] MEDS: MULTIVIT-MINERALS ORAL LIQUID PO SCH (09:49)
[2018-10-24] MEDS: PANTOPRAZOLE 40 MG TABLET (FP) PO SCH (09:49)
[2018-10-24] MEDS: FOLIC ACID 1 MG TABLET (FP) PO SCH (09:49)
[2018-10-24] MEDS: CALCIUM PO SCH (09:50)
[2018-10-24] MEDS: VITAMIN D PO SCH (09:50)
[2018-10-24] MEDS: LIDOCAINE 5% TOPICAL PATCH TP SCH (09:52)
[2018-10-24] MEDS: LISINOPRIL 20 MG TABLET (FP) PO SCH (09:52)
[2018-10-24] MEDS: HYDROCORTISONE 1% TOPICAL CREAM 30 GM TUBE TP SCH ×2 (09:52→21:12)
[2018-10-24] MEDS: BACITRACIN 0.9 GM PACKET TP SCH ×2 (09:52→21:12)
--- NOTE | 2018-10-24 10:32 | PN ---
S Progress Note (SOAP) Subjective: PT IS SCHEDULED TO BE DISCHARGED ON Saturday10/27/18. PT HAS MET WITH HIS COUNSELOR, MS JUANY PATELERTON FOR CD AFTERCARE ARRANGEMENTS AND HAS BEEN REFERRED TO [facility] ON [address] [place] [address]. PT REPORTS HE HAS A PCP DR. FLORES AT [address] [place] [address] BEAN AT [facility]. THIS [employer] CLOTH TENDER AND PATIENT SPOKE TO HIS HOME PHARMACIST WHO WILL CALL PT'S PCP TO SEND IN PT'S RX PENDING DISCHARGE ON . PT IS ALERT O X 3. AMBULATING WITH WALKER. DENIES S/H/I. Objective: 10/24/18 10:35 Vital Signs - 24 hr 10/23/18 10/24/18 10/24/18 12:02 00:30 03:30 Temperature Pulse Rate 88 Respiratory 18 18 Rate Blood Pressure 124/76 10/24/18 10/24/18 06:36 10:00 Temperature 97.8 F Pulse Rate 86 90 Respiratory 16 Rate Blood Pressure 142/88 105/64 Assessment: 10/24/18 10:35 NAD MEDICALLY STABLE Plan: D/W PT TO FOLLOW UP WITH PCP DR. FLORES FOR MEDICAL MANAGEMENT WITIN 1 WEEK AFTER DISCHARGE. D/W PT TO FOLLOW UP WITH GASTROENTEROLOGY CLINIC AT [facility] FOR EVALUATION OF SWALLOWING PROBLEMS AFTER DISCHARGE. FOLLOW UP WITH CD AFTERCARE RECOMMENDATION ON 10/29/18 AT 1:00 P.M.
[2018-10-24] MEDS: TETRAHYDROZOLINE HCL EYE DROPS OU PRN (14:19)
[2018-10-24] MEDS: DOCUSATE SODIUM 100 MG CAPSULE (FP) PO SCH (21:10)
[2018-10-24] MEDS: THIAMINE HCL 100 MG TABLET (FP) PO SCH (21:10)
[2018-10-24] MEDS: LIDOCAINE PATCH REMOVAL MC SCH (21:11)
[2018-10-24] MEDS: MELATONIN 5 MG TABLETS PO PRN (21:11)
[2018-10-25] MEDS: GABAPENTIN 250 MG/5 ML ORAL SOLUTION, 470 ML BOTTLE PO SCH ×3 (06:02→21:14)
[2018-10-25] MEDS: LIPASE/PROTEASE/AMYLASE 6,000 UNIT CAPSULE PO SCH ×3 (08:01→16:37)
[2018-10-25] MEDS: LISINOPRIL 20 MG TABLET (FP) PO SCH (09:37)
[2018-10-25] MEDS: FOLIC ACID 1 MG TABLET (FP) PO SCH (09:37)
[2018-10-25] MEDS: PANTOPRAZOLE 40 MG TABLET (FP) PO SCH (09:37)
[2018-10-25] MEDS: MULTIVIT-MINERALS ORAL LIQUID PO SCH (09:41)
[2018-10-25] MEDS: VITAMIN D PO SCH (09:42)
[2018-10-25] MEDS: LIDOCAINE 5% TOPICAL PATCH TP SCH (09:42)
[2018-10-25] MEDS: CALCIUM PO SCH (09:42)
[2018-10-25] MEDS: BACITRACIN 0.9 GM PACKET TP SCH ×2 (09:42→21:13)
[2018-10-25] MEDS: HYDROCORTISONE 1% TOPICAL CREAM 30 GM TUBE TP SCH ×2 (09:42→21:13)
[2018-10-25 13:06] LABS: HEMATOCRIT 35.6 % (35.4-49); HEMOGLOBIN 11.4 GM/dL (11.7-16.9); MCH 26.7 pg (25.7-33.7); MEAN CELL VOLUME 83.6 fl (80-96); MEAN PLT VOLUME 9.1 fl (7.5-11.1); PLATELET COUNT 131 K/MM3 (134-434); RBC 4.26 M/mm3 (4.00-5.60); RDW 16.1 % (11.9-15.9); WHITE BLOOD COUNT 4.4 K/mm3 (4.0-10.0)
[2018-10-25 13:17] LABS: ALBUMIN 3.8 g/dl (3.4-5.0); BILIRUBIN,TOTAL 0.4 mg/dL (0.2-1); BLOOD UREA NITROGEN 17.4 mg/dL (7-18); CALCIUM 9.2 mg/dL (8.5-10.1); CREATININE 0.9 mg/dL (0.55-1.3); POTASSIUM 4.8 mmol/L (3.5-5.1); TOT PROT 7.8 g/dl (6.4-8.2)
[2018-10-25] MEDS: TETRAHYDROZOLINE HCL EYE DROPS OU PRN ×2 (13:56→21:15)
[2018-10-25] MEDS: DOCUSATE SODIUM 100 MG CAPSULE (FP) PO SCH (21:12)
[2018-10-25] MEDS: MELATONIN 5 MG TABLETS PO PRN (21:12)
[2018-10-25] MEDS: THIAMINE HCL 100 MG TABLET (FP) PO SCH (21:12)
[2018-10-25] MEDS: LIDOCAINE PATCH REMOVAL MC SCH (21:16)
[2018-10-26] MEDS: GABAPENTIN 250 MG/5 ML ORAL SOLUTION, 470 ML BOTTLE PO SCH ×3 (05:51→21:16)
[2018-10-26] MEDS: LIPASE/PROTEASE/AMYLASE 6,000 UNIT CAPSULE PO SCH ×3 (07:42→16:57)
[2018-10-26] MEDS: FOLIC ACID 1 MG TABLET (FP) PO SCH (09:56)
[2018-10-26] MEDS: LISINOPRIL 20 MG TABLET (FP) PO SCH (09:56)
[2018-10-26] MEDS: PANTOPRAZOLE 40 MG TABLET (FP) PO SCH (09:56)
[2018-10-26] MEDS: LIDOCAINE 5% TOPICAL PATCH TP SCH (09:56)
[2018-10-26] MEDS: BACITRACIN 0.9 GM PACKET TP SCH ×2 (09:56→21:17)
[2018-10-26] MEDS: VITAMIN D PO SCH (09:57)
[2018-10-26] MEDS: CALCIUM PO SCH (09:57)
[2018-10-26] MEDS: MULTIVIT-MINERALS ORAL LIQUID PO SCH (09:57)
[2018-10-26] MEDS: TETRAHYDROZOLINE HCL EYE DROPS OU PRN ×2 (09:59→21:18)
[2018-10-26] MEDS: DOCUSATE SODIUM 100 MG CAPSULE (FP) PO SCH (21:15)
[2018-10-26] MEDS: THIAMINE HCL 100 MG TABLET (FP) PO SCH (21:16)
[2018-10-26] MEDS: MELATONIN 5 MG TABLETS PO PRN (21:17)
[2018-10-26] MEDS: LIDOCAINE PATCH REMOVAL MC SCH (21:17)
[2018-10-27] MEDS: GABAPENTIN 250 MG/5 ML ORAL SOLUTION, 470 ML BOTTLE PO SCH (06:15)
[2018-10-27 06:42] VITALS: TEMP 96.5
[2018-10-27] MEDS: LIPASE/PROTEASE/AMYLASE 6,000 UNIT CAPSULE PO SCH (07:36)
[2018-10-27] MEDS: CALCIUM PO SCH (10:20)
[2018-10-27] MEDS: VITAMIN D PO SCH (10:20)
[2018-10-27] MEDS: LIDOCAINE 5% TOPICAL PATCH TP SCH (10:20)
[2018-10-27] MEDS: FOLIC ACID 1 MG TABLET (FP) PO SCH (10:20)
[2018-10-27] MEDS: MULTIVIT-MINERALS ORAL LIQUID PO SCH (10:20)
[2018-10-27] MEDS: PANTOPRAZOLE 40 MG TABLET (FP) PO SCH (10:20)
[2018-10-27] MEDS: LISINOPRIL 20 MG TABLET (FP) PO SCH (10:20)
[2018-10-27] MEDS: BACITRACIN 0.9 GM PACKET TP SCH (10:20)
[2018-10-27 11:21] VITALS: BP 136/80; PULSE 92
--- NOTE | 2018-10-27 12:51 | PN ---
[facility] Progress Note Note: PT COMPLETED REHAB AND DISCHARGED TODAY VIA TRANSPORTATION TO RESIDENTIAL LOCATION SCHEDULED. ALERT O X 3. NAD. DENIES S/H/I. D/W PT TO FOLLOW UP WITH PCP FOR MEDICAL MANAGEMENT AND CD AFTERCARE RECOMMENDATION. PT HAS OWN MEDS AND WILL FOLLOW UP FOR HIS REFILLS WITH PCP. Vital Signs - 24 hr 10/27/18 10/27/18 10/27/18 00:30 03:30 06:40 Temperature 96.5 F L Pulse Rate 84 Respiratory 18 18 18 Rate Blood Pressure 126/93 10/27/18 10:00 Temperature Pulse Rate 92 H Respiratory Rate Blood Pressure 136/80
== END 2018-10-27 10:15 | disposition home or self-care (01) | DRG 772 ==
LOC: YASAS 18:59 → Y5N 19:00
PROVIDERS: ADMIT Neuromusculoskeletal Medicine & OMM; ATTEND Neuromusculoskeletal Medicine & OMM
PROC: HZ42ZZZ Group Counseling for Substance Abuse Treatment, Cognitive-Behavioral (ICD-10-PCS; principal; 2018-10-13)
DX: F10.20 Alcohol dependence, uncomplicated (principal); I10 Essential (primary) hypertension; D69.6 Thrombocytopenia, unspecified; K86.1 Other chronic pancreatitis; K74.60 Unspecified cirrhosis of liver; G62.9 Polyneuropathy, unspecified; L03.113 Cellulitis of right upper limb; R26.2 Difficulty in walking, not elsewhere classified; Z99.89 Dependence on other enabling machines and devices; Z87.448 Personal history of other diseases of urinary system; W18.30XA Fall on same level, unspecified, initial encounter; Y93.9 Activity, unspecified; Y92.230 Patient room in hospital as the place of occurrence of the external cause
CPT/HCPCS: 36415; 80053; 85027